=== PATIENT | female | born 1990 | race Caucasian/White ===

== ENCOUNTER 2024-12-12 16:38 | Emergency (ER) | payer BC, SELFPAY ==
[2024-12-12 16:49] VITALS: BP 115/79
[2024-12-12 17:10] LABS: % Basophils 0.5 % (0-2); % Eosinophils 3.3 % (0-6); % Immature Granulocytes 0.2 % (0-0.5); % Lymphocytes 30.6 % (20.5-51.1); % Monocytes 5.5 % (1.7-9.3); % Neutrophils 59.9 % (42.2-75.2); Absolute Basophils 0.1 10^3/uL (0-0.2); Absolute Eosinophils 0.4 10^3/uL (0-0.7); Absolute Lymphocytes 3.8 10^3/uL (1.2-3.4); Absolute Monocytes 0.7 10^3/uL (0.1-0.6); Absolute Neutrophils 7.4 10^3/uL (1.4-6.5); Hematocrit 40.8 % (37.0-47.0); Mean Corp Hgb Conc. 34.3 g/dL (33.0-37.0); Mean Corpuscular Hgb 30.2 pg (27.0-31.0); Mean Corpuscular Volume 87.9 fL (81.0-99.0); Mean Platelet Volume 10.6 fL (7.4-10.4); Nucleated Red Blood Cells % 0 %; Platelet Count 276 10^3/uL (130-400); Red Blood Cell Count 4.64 10^6/uL (4.20-5.40); White Blood Cell Count 12.3 10^3/uL (4.8-10.8)
[2024-12-12 17:14] LABS: Urine Albumin Negative (Neg - Trace); Urine Bilirubin Negative (Negative); Urine Character Clear (Clear); Urine Color Yellow; Urine Glucose Negative (Negative); Urine Ketone Negative (Negative); Urine Leukocyte Negative (Negative); Urine Nitrite Negative (Negative); Urine Occult Blood Negative (Negative); Urine Urobilinogen Negative (Neg - 1+)
[2024-12-12 17:25] LABS: HCG, Serum Qualitative Screen Negative
[2024-12-12 17:29] LABS: ALT (SGPT) 20 U/L (0-35); AST (SGOT) 20 U/L (14-36); Albumin 4.9 g/dl (3.5-5.0); Alkaline Phosphatase 45 U/L (38-126); Blood Urea Nitrogen 19 mg/dl (7-17); Carbon Dioxide 24 mmol/L (22-30); Chloride 105 mmol/L (98-107); Glucose 87 mg/dl (70-99); Lipase 227 U/L (23-300); Potassium 4.3 mmol/L (3.5-5.1); Sodium 139 mmol/L (135-145); Total Bilirubin 0.5 mg/dl (0.2-1.3); Total Protein 8.1 g/dl (6.3-8.2); eGFR > 60.00
[2024-12-12 17:56] VITALS: BMI 33.8
--- NOTE | 2024-12-12 18:01 | ED.GENMED ---
History of Present Illness
General
Chief Complaint: Abdominal Pain
Source: patient
Exam Limitations: none
Time Seen by Provider: 12/12/24 17:45
History of Present Illness
History of Present Illness:
34yoF with a history of hypertension, hypothyroidism, and obesity presenting for evaluation of abdominal pain. Symptoms have been present for about 3 days. Pain is described as a cramping pain. Pain is constant but fluctuates. Pain is worse
after eating or drinking a large amount of water. She denies any history of similar pains in the past. She reports nausea but denies vomiting. She denies fevers, chills, chest pain, shortness of breath, urinary symptoms. No previous abdominal
surgeries.
Phy Exam
General Physical Exam
General Presentation: well appearing and no apparent distress
General Skin: warm and dry
General Habitus: normal
General Mental: alert
ENT Exam
ENT Exam: normocephalic
Cardiovascular Exam
Cardiovascular Exam: regular rate/rhythm
Pulmonary Exam
Pulmonary Exam: lungs clear, no respiratory distress, no rales, no crackles, no rhonchi and no wheezing
Gastrointestinal Exam
Gastrointestinal Exam: soft, non distended and other (+Tenderness in RUQ and epigastrium. Abdomen soft, non-distended. No rebound or guarding.)
Neurological Exam
Neurological Exam: alert
Kayla Coma Scale
Eye Opening: Spontaneous
Verbal Response: Oriented
Motor Response: Obeys Commands
GCS Total Score: 15
Skin Exam
Skin Exam: normal color and warm/dry
Psychiatric Exam
Psychiatric Exam: normal mood/affect
Course
Orders/Labs/Results
Orders:
Orders
12/12/24 16:52
Test Result ONCE
12/12/24 17:02
Complete Blood Count/With Diff Urgent
Comprehensive Metabolic Panel Urgent
HCG, Serum Qualitative Screen Urgent
Comment: Notify provider if positive test present
Lipase Urgent
Urinalysis Reflex To Culture Urgent
Date Specimen was Collected: 12/12/24
Time Specimen was Collected: 16:52
12/12/24 17:59
US Abdomen Complete/Upper Urgent
Comment:
Reason For Exam: RUQ pain
12/12/24 19:02
CT Abd/pelvis W Iv Cont Urgent
Comment:
Reason For Exam: Epigastric, R sided abd pain
Abnormal Lab Results
12/12/24
17:02
WBC 12.3 H 10^3/uL
(4.8-10.8)
MPV 10.6 H fL
(7.4-10.4)
Absolute Neuts (auto) 7.4 H 10^3/uL
(1.4-6.5)
Absolute Lymphs (auto) 3.8 H 10^3/uL
(1.2-3.4)
Absolute Monos (auto) 0.7 H 10^3/uL
(0.1-0.6)
BUN 19 H mg/dl
(7-17)
12/12/24 17:02
12/12/24 17:02
Vital Signs
Initial and Last Documented VS:
Initial Vital Signs
Temp Pulse Resp BP Pulse Ox
98.4 F 85 16 115/79 100
12/12/24 16:49 12/12/24 16:49 12/12/24 16:49 12/12/24 16:49 12/12/24 16:49
Last Documented Vital Signs
Temp Pulse Resp BP Pulse Ox
98.4 F 85 17 106/72 99
12/12/24 16:49 12/12/24 20:33 12/12/24 20:33 12/12/24 20:30 12/12/24 20:33
MDM/Problems Addressed
Differential Diagnosis Includes:
34yoF here with RUQ pain x 3 days. Worse after eating. +Nausea. No f/c. VSS. She is well appearing in no distress. No signs of peritonitis on abdominal exam. Differential diagnosis includes but is not limited to: biliary colic, cholecystitis,
pancreatitis, PUD, kidney stone, musculoskeletal, nonspecific abdominal pain
Initial ED plan: Labs obtained in triage. WBC 12.3 which is nonspecific. Renal function, LFTs, lipase normal. Will check upper abdominal ultrasound. She declines analgesics.
*Critical Care Note
Total Time (30-74mins, 75-104mins- exclusive of procedures): Not Applicable
Update Note
Update Note:
Ultrasound is negative for acute findings. CT abdomen was added which shows mild dilatation of R renal collecting system of unknown etiology. No ureterolithiasis noted and urinalysis is normal. No indication for hospitalization. Advised f/u with PCP
and ED return precautions reviewed. Patient discharged in stable condition.
ED Attending Note
-
Portions of this chart may have been created with voice recognition software.� Occasional wrong word or��sound alike� substitutions may have occurred due to the inherent limitations of voice recognition software.
Discharge Plan
Departure
Patient Disposition: Home (Routine Discharge)
Date of Disposition: 12/12/24
Time of Disposition: 20:23
Patient with high blood pressure during this ER visit?: No
Discharge Problem:
Nonspecific abdominal pain
Instructions: Abdominal Pain
Referrals:
Oliver Hale DO [Family Provider, Family Practice]
Activity Restrictions/Additional Instructions:
Please follow-up with your family doctor. Return to the ER with any new or worsening symptoms.
Interventions
Interventions:
*Risk Screen - Suicide Last Done: 12/12/24 16:49
*General Assessment Last Done: 12/12/24 17:56
*Neglect/Abuse Screening Last Done: 12/12/24 16:49
*ED- Fall Risk Assessment Last Done: 12/12/24 17:56
*ED COVID-19 Vaccine History Last Done: 12/12/24 17:56
*Nursing Disposition Last Done: 12/12/24 20:33
OR-Lvjqlb-Oyhhmqnokc Assessment Last Done: 12/12/24 17:56
Discharge Date and Time
Discharge Date/Time: 12/12/24 20:34
Print Language: DIVEHI
[2024-12-12 19:06] VITALS: BP 117/74
[2024-12-12 20:30] VITALS: BP 106/72
== END 2024-12-12 20:34 | disposition home or self-care (01) ==
LOC: EMR 16:38
PROVIDERS: EMERGENCY PHYSICIAN Emergency Medicine; FAMILY PHYSICIAN Family Medicine
DX: R10.9 Unspecified abdominal pain (principal); I10 Essential (primary) hypertension; E03.9 Hypothyroidism, unspecified
CPT/HCPCS: 99284; 74177; 76700; 80053; 81003; 83690; 84703; 85025; Q9967